=== PATIENT | female | born 1990 | race Caucasian/White ===

== ENCOUNTER → 2024-02-08 13:23 | Outpatient (REF) | payer OTHER, SELFPAY | LOC: RAD 13:23 | PROVIDERS: ATTENDING PHYSICIAN Family Medicine | DX: R10.11 Right upper quadrant pain (principal); K76.89 Other specified diseases of liver | CPT/HCPCS: 76700 ==

== ENCOUNTER → 2024-08-26 10:50 | Outpatient (REF) | payer OTHER, SELFPAY | LOC: MRI 3T 10:50 | PROVIDERS: ATTENDING PHYSICIAN Physician Assistant; FAMILY PHYSICIAN Family Medicine | DX: Q75.9 Congenital malformation of skull and face bones, unspecified (principal); R51.9 Headache, unspecified | CPT/HCPCS: 70551 ==

== ENCOUNTER → 2025-09-12 10:04 | Outpatient (REF) | payer OTHER, SELFPAY | LOC: HWRAD 10:04 | PROVIDERS: ATTENDING PHYSICIAN Student in an Organized Health Care Education/Training Program | DX: K76.89 Other specified diseases of liver (principal) | CPT/HCPCS: 76700 ==